=== PATIENT | female | born 1970 | race Caucasian/White ===

== ENCOUNTER 2017-08-16 05:42 | Day surgery (SDC) | payer OTHER ==
[2017-08-16] MEDS ORDERED: LIDOCAINE 1% 100 MG in NS 100 ML IV ONE (06:03)
[2017-08-16] MEDS ORDERED: METOCLOPRAMIDE 10 MG/2 ML VIAL IVP ONE (06:03)
[2017-08-16] MEDS ORDERED: KETOROLAC 15 MG/1 ML SDV IVP ONE (06:04)
--- NOTE | 2017-08-16 06:07 | EDPHY ---
H & P Stated Complaint: abdominal pain Source: Patient Exam Limitations: No limitations - Personal History LMP (Females 10-55): Now Current Tetanus/Diphtheria Vaccine: Yes Current Tetanus Diphtheria and Acellular Pertussis (TDAP): Yes - Medical/Surgical History Hx Asthma: No Hx Chronic Respiratory Disease: No Hx Diabetes: No Hx Cardiac Disease: No Hx Renal Disease: No Hx Cirrhosis: No Hx Alcoholism: No Hx HIV/AIDS: No Hx Splenectomy or Spleen Trauma: No Other PMH: tonsilectomy. gallbladder - Social History Smoking Status: Never smoked <Mag Uribe - Last Filed: 08/16/17 06:39> <Gianfranco Arias - Last Filed: 08/16/17 07:27> Time Seen by Provider: 08/16/17 05:54 HPI/ROS: HPI The patient presents with lower abdominal pain which is bilateral, cramping in nature, began at 2:00 a.m. when she rolled over in her sleep. She had a small bowel movement, took some gas ex medication with some improvement in her pain, however then a got worse. She is feeling nauseated but has not vomited. Her pain is worse with movement. She does have chronic low back pain for which she takes oxycodone at night. She does have PCOS and is followed with frequent ultrasounds. She is on the 2nd day of her menses.. REVIEW OF SYSTEMS Constitutional: No fever, no chills. Eyes: No discharge. ENT: No sore throat. Cardiovascular: No chest pain, no palpitations. Respiratory: No cough, no shortness of breath. Gastrointestinal: See HPI Genitourinary: No hematuria. Musculoskeletal: No back pain. Skin: No rashes. Neurological: No headache. PMHx: PCOS, history of cholecystectomy, lower back pain Soc Hx: Housed PHYSICAL General Appearance: Alert, uncomfortable appearing, hyperventilating Eyes: Pupils equal and round no pallor or injection ENT, Mouth: Mucous membranes moist Respiratory: There are no retractions, lungs are clear to auscultation Cardiovascular: Regular rate and rhythm Gastrointestinal: Abdomen is soft and and tender in the left and right lower quadrants without rebound or guarding Neurological: A&O, moves all extremities Skin: Warm and dry, no rashes Musculoskeletal: Neck is supple non tender Extremities: symmetrical, full range of motion Psychiatric: Patient is oriented X 3, there is no agitation (Mag Uribe) Constitutional: Initial Vital Signs Temperature (C) 36.8 C 08/16/17 05:46 Heart Rate 84 08/16/17 05:46 Respiratory Rate 18 08/16/17 05:46 Blood Pressure 114/76 08/16/17 05:46 O2 Sat (%) 100 08/16/17 05:46 O2 Delivery Mode Room Air Allergies/Adverse Reactions: No Known Allergies Allergy (Unverified 08/18/09 09:45) Home Medications: Medication Instructions Recorded NK [No Known Home Meds] 08/17/14 Medical Decision Making <Mag Uribe - Last Filed: 08/16/17 06:39> - Diagnostics Imaging: Discussed imaging studies w/ bilingual call center representative Radiologist, I viewed and interpreted images myself <Gianfranco Arias - Last Filed: 08/16/17 07:27> Differential Diagnosis: This is a 46-year-old female with history of PCOS, status post cholecystectomy who presents with bilateral lower quadrant abdominal pain which has been present for the last 4 hours which started when she was sleeping. The pain is worse with movement, crampy in nature. Differential diagnosis includes menstrual cramps, ovarian cyst with rupture, ovarian torsion, appendicitis, diverticulitis, ectopic . In the emergency department, the patient received IV fluids for volume depletion , she received pain medication with some improvement in her pain, labs were checked and did reveal a profound leukocytosis concerning for underlying infection verses stress response. CT scan of abdomen pelvis was ordered given leukocytosis raising concern for diverticulitis or appendicitis. At 6:45 a.m., the case has been signed out to the oncoming provider Dr. Arias pending review of the patient's CT scan and further disposition. (Mag Uribe) Other Provider: 0700: I assumed care of this patient at shift change pending CT results. 0715: CT shows acute appendicitis with possible abscesses. I examined the patient and she continues to have RLQ tenderness. She has received 2L IV NS and 1gm IV ertapenem. 07: Consulted with Dr. Soria, surgeon. She plans to take patient to surgery. She will look at the retrouterine structures with the scope, so we do not need an ultrasound. (Gianfranco Arias) - Data Points Laboratory Results: Laboratory Results 08/16/17 06:03 08/16/17 06:03 08/16/17 08/16/17 08/16/17 06:20 06:03 06:03 WBC RBC Hgb Hct MCV MCH MCHC RDW Plt Count MPV Neut % (Auto) Lymph % (Auto) [place] % (Auto) Eos % (Auto) Baso % (Auto) Nucleat RBC Rel Count Absolute Neuts (auto) Absolute Lymphs (auto) Absolute Monos (auto) Absolute Eos (auto) Absolute Basos (auto) Absolute Nucleated RBC Immature Gran % Immature Gran # Sodium 136 mEq/L mEq/L (134-144) Potassium 4.1 mEq/L mEq/L (3.5-5.2) Chloride 106 mEq/L mEq/L (97-110) Carbon Dioxide 18 mEq/l L mEq/l (22-31) Anion Gap 12 mEq/L mEq/L (8-16) BUN 20 mg/dL mg/dL (7-23) Creatinine 0.8 mg/dL mg/dL (0.6-1.0) Estimated GFR > 60 Glucose 152 mg/dL H mg/dL (70-100) Calcium 10.2 mg/dL mg/dL (8.5-10.4) Beta HCG, Qual NEGATIVE Urine Color YELLOW Urine Appearance CLEAR Urine pH 6.0 (5.0-7.5) Ur Specific [place] 1.019 (1.002-1.030) Urine Protein NEGATIVE (NEGATIVE) Urine Ketones NEGATIVE (NEGATIVE) Urine Blood 1+ H (NEGATIVE) Urine Nitrate NEGATIVE (NEGATIVE) Urine Bilirubin NEGATIVE (NEGATIVE) Urine Urobilinogen NEGATIVE EU EU (0.2-1.0) Ur Leukocyte Esterase NEGATIVE (NEGATIVE) Urine RBC 5-10 /hpf H /hpf (0-3) Urine WBC 5-10 /hpf H /hpf (0-3) Ur Epithelial Cells TRACE /lpf /lpf (NONE-1+) Urine Mucus 1+ /lpf /lpf (NONE-1+) Urine Glucose NEGATIVE (NEGATIVE) 08/16/17 06:03 WBC 20.63 10^3/uL H 10^3/uL (3.80-9.50) RBC 4.44 10^6/uL 10^6/uL (4.18-5.33) Hgb 14.0 g/dL g/dL (12.6-16.3) Hct 39.4 % % (38.0-47.0) MCV 88.7 fL fL (81.5-99.8) MCH 31.5 pg pg (27.9-34.1) MCHC 35.5 g/dL g/dL (32.4-36.7) RDW 13.2 % % (11.5-15.2) Plt Count 358 10^3/uL 10^3/uL (150-400) MPV 9.7 fL fL (8.7-11.7) Neut % (Auto) 83.9 % H % (39.3-74.2) Lymph % (Auto) 10.5 % L % (15.0-45.0) [place] % (Auto) 4.2 % L % (4.5-13.0) Eos % (Auto) 0.5 % L % (0.6-7.6) Baso % (Auto) 0.2 % L % (0.3-1.7) Nucleat RBC Rel Count 0.0 % % (0.0-0.2) Absolute Neuts (auto) 17.32 10^3/uL H 10^3/uL (1.70-6.50) Absolute Lymphs (auto) 2.16 10^3/uL 10^3/uL (1.00-3.00) Absolute Monos (auto) 0.86 10^3/uL H 10^3/uL (0.30-0.80) Absolute Eos (auto) 0.10 10^3/uL 10^3/uL (0.03-0.40) Absolute Basos (auto) 0.05 10^3/uL 10^3/uL (0.02-0.10) Absolute Nucleated RBC 0.00 10^3/uL 10^3/uL (0-0.01) Immature Gran % 0.7 % % (0.0-1.1) Immature Gran # 0.14 10^3/uL H 10^3/uL (0.00-0.10) Sodium Potassium Chloride Carbon Dioxide Anion Gap BUN Creatinine Estimated GFR Glucose Calcium Beta HCG, Qual Urine Color Urine Appearance Urine pH Ur Specific [place] Urine Protein Urine Ketones Urine Blood Urine Nitrate Urine Bilirubin Urine Urobilinogen Ur Leukocyte Esterase Urine RBC Urine WBC Ur Epithelial Cells Urine Mucus Urine Glucose Medications Given: Discontinued Medications Lidocaine HCl 100 mg/ Sodium (Chloride) 110 mls @ 600 mls/hr IV EDNOW ONE Stop: 08/16/17 06:13 Last Admin: 08/16/17 06:22 Dose: 110 mls Sodium Chloride (Ns) 1,000 mls @ 0 mls/hr IV ONCE ONE PRN Reason: Wide Open Stop: 08/16/17 06:11 Last Admin: 08/16/17 06:15 Dose: 1,000 mls Ketorolac Tromethamine (Toradol) 15 mg IVP EDNOW ONE Stop: 08/16/17 06:05 Last Admin: 08/16/17 06:15 Dose: 15 mg Metoclopramide HCl (Reglan Injection) 10 mg IVP EDNOW ONE Stop: 08/16/17 06:04 Last Admin: 08/16/17 06:14 Dose: 10 mg Departure <Mag Uribe - Last Filed: 08/16/17 06:39> <Gianfranco Arias - Last Filed: 08/16/17 07:27> - Departure Disposition: [facility] Acute Clinical Impression: Acute appendicitis Qualifiers: Acute appendicitis type: with localized peritonitis Qualified Code(s): K35.3 - Acute appendicitis with localized peritonitis Condition: Fair Instructions: Acute Abdominal Pain (ED) Referrals: SELENE ANTONIO [Primary Care Provider] - As per Instructions
[2017-08-16] MEDS ORDERED: NS 1,000 ML IV ONE (06:10)
[2017-08-16 06:11] LABS: % IMMATURE GRANULYOCYTES 0.7 % (0.0-1.1); ABSOLUTE IMMATURE GRANULOCYTES 0.14 10^3/uL (0.00-0.10); ADD DIFF? NO; ADD MORPH? NO; ADD SCAN? NO; ATYPICAL LYMPHOCYTE FLAG 0 (0-99); FRAGMENT RBC FLAG 0 (0-99); HEMATOCRIT 39.4 % (38.0-47.0); LEFT SHIFT FLG 0 (0-99); LIPEMIA HEMOLYSIS FLAG 90 (0-99); MEAN CELL HEMOGLOBIN 31.5 pg (27.9-34.1); MEAN CELL HEMOGLOBIN CONCENTR. 35.5 g/dL (32.4-36.7); MEAN CELL VOLUME 88.7 fL (81.5-99.8); MEAN PLATELET VOLUME 9.7 fL (8.7-11.7); PLATELET CLUMPS FLAG 0 (0-99); PLATELET COUNT 358 10^3/uL (150-400); RED BLOOD CELL COUNT 4.44 10^6/uL (4.18-5.33); RED CELL DISTRIBUTION WIDTH 13.2 % (11.5-15.2)
[2017-08-16 06:35] LABS: COLOR YELLOW; LEUKOCYTE ESTERASE,URINE NEGATIVE (NEGATIVE); NITRITE,URINE NEGATIVE (NEGATIVE)
[2017-08-16] MEDS ORDERED: IOPAMIDOL (ISOVUE-300) 100 ML BTL ONE (06:36)
[2017-08-16 06:38] LABS: ANION GAP 12 mEq/L (8-16); CALCIUM 10.2 mg/dL (8.5-10.4); CARBON DIOXIDE 18 mEq/l (22-31); CHLORIDE 106 mEq/L (97-110); CREATININE 0.8 mg/dL (0.6-1.0); GLOMERULAR FILTRATION RATE > 60; GLUCOSE 152 mg/dL (70-100); POTASSIUM 4.1 mEq/L (3.5-5.2); SODIUM 136 mEq/L (134-144)
[2017-08-16 06:41] LABS: MUCUS 1+ /lpf (NONE-1+)
[2017-08-16] MEDS ORDERED: ERTAPENEM 1 GM in NS 100 ML IV ONE (07:20)
[2017-08-16] MEDS ORDERED: BUPIVACAINE 0.5% 30 ML SDV ONE (07:46)
--- NOTE | 2017-08-16 07:53 | PDANEPAE ---
ANE History of Present Illness 46 year old female w/ PMHx of PCOS presents with abdominal pain. Imaging and evaluation in ED indicates acute appendicitis. To OR with Dr. Soria. ANE Past Medical History - Cardiovascular History Hx Hypertension: No Hx Arrhythmias: No Hx Chest Pain: No Hx Coronary Artery / Peripheral Vascular Disease: No Hx CHF / Valvular Disease: No Hx Palpitations: No - Pulmonary History Hx COPD: No Hx Asthma/Reactive Airway Disease: No Hx Recent Upper Respiratory Infection: No Hx Oxygen in Use at Home: No Hx Sleep Apnea: No - Endocrine History Hx Diabetes: No Hypothyroid: No Hyperthyroid: No Obesity: mild - Renal History Hx Renal Disorders: No - Liver History Hx Hepatic Disorders: No - Neurological & Psychiatric Hx Hx Neurological and Psychiatric Disorders: No - GI History GERD: mild Gastrointestinal History Comment: Acute appendicitis - Other Health History Other Health History: PCOS - Chronic Pain History Chronic Pain: Yes (Chronic back pain - scheduled for surgery in at [place]) - Surgical History Prior Surgeries: tonsillectomy. Cholecystectomy ANE Review of Systems Review of Systems: - Exercise capacity Exercise capacity: >=4 METS - Systems Gastrointestinal: Reports: abdominal pain, nausea Muscolosketal: Reports: back pain ANE Patient History - Allergies Allergies/Adverse Reactions: No Known Allergies Allergy (Verified 08/16/17 07:44) - Home Medications Home Medications: NK [No Known Home Meds] 08/17/14 [Last Taken Unknown] - NPO status NPO Status: no food or drink >8 hours NPO Since - Liquids (Date): 08/16/17 NPO Since - Liquids (Time): 02:00 NPO Since - Solids (Date): 08/15/17 NPO Since - Solids (Time): 20:00 - Anes Hx Anes Hx: no prior problems - Smoking Hx Smoking Status: Never smoked Marijuana use: No - Alcohol Use Alcohol Use: Rarely - Family Anes Hx Family Anes Hx: neg - N/A ANE Labs/Vital Signs - Labs Result Diagrams: 08/16/17 06:03 08/16/17 06:03 - Vital Signs Vital Signs: reviewed preoperatively; see RN documention for details Blood Pressure: 106/60 Heart Rate: 96 Respiratory Rate: 18 O2 Sat (%): 95 Height: 16.46 m Weight: 72.575 kg ANE Physical Exam - Airway Neck exam: FROM Mallampati Score: Class 2 Mouth exam: normal dental/mouth exam - Pulmonary Pulmonary: no respiratory distress - Cardiovascular Cardiovascular: regular rate and rhythym - ASA Status ASA Status: II ANE Anesthesia Plan Anesthesia Plan: general endotracheal anesthesia Total IV Anesthesia: No
[2017-08-16] MEDS ORDERED: MIDAZOLAM 2 MG/2 ML VIAL IVP ONE (08:10)
[2017-08-16] MEDS ORDERED: MIDAZOLAM 2 MG/2 ML VIAL ONE (08:11)
[2017-08-16 08:12] VITALS: PULSE 96
[2017-08-16] MEDS ORDERED: SUCCINYLCHOLINE CHLORIDE*ANESTHESIA ONLY*200 MG/10 ML SYR IVP ONE (08:14)
[2017-08-16] MEDS ORDERED: ROCURONIUM 50 MG/5 ML VIAL ONE (08:14)
[2017-08-16] MEDS ORDERED: ONDANSETRON 4 MG/2 ML VIAL ONE (08:14)
[2017-08-16] MEDS ORDERED: fentaNYL 100 MCG/2 ML INJ ONE (08:14)
[2017-08-16] MEDS ORDERED: DEXAMETHASONE 4 MG/ML VIAL ONE (08:14)
[2017-08-16] MEDS ORDERED: PROPOFOL 200 MG/20 ML VIAL ONE (08:14)
[2017-08-16] MEDS ORDERED: LIDOCAINE 2% 5 ML SDV ONE (08:14)
--- NOTE | 2017-08-16 08:36 | GHP ---
[f rep st] HISTORY AND PHYSICAL DATE OF ADMISSION: 08/16/2017 CHIEF COMPLAINT: Appendicitis. HISTORY OF PRESENT ILLNESS: The patient is a 46-year-old woman who woke up abruptly at 2 a.m. with l ower abdominal pain. She has never had this pain before. She felt like throwing up, but did not thr ow up. She does not think she had any fevers. The pain was so severe, she came to the emergency dep artment. Her white count is 20,000. Her CT scan showed acute appendicitis. In addition, she has 2 areas of fluid that are retro utero that could be related ovarian cyst versus abscess. PAST MEDICAL HISTORY: Back pain. PAST SURGICAL HISTORY: at age 18 and a laparoscopic cholecystectomy. FAMILY HISTORY: Significant for diabetes in her father, and her mother has had several back surgerie s. ALLERGIES: No known drug allergies. 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 She does not use [employer] products. She drinks alcohol very rarely. She has a daughter who returned from college. REVIEW OF SYSTEMS: 10-point review of systems negative other than HPI. PHYSICAL EXAM: VITALS: Reviewed. GENERAL: Pleasant, well-nourished, well-groomed woman, sitting u p on exam table. HEENT: Normocephalic. No gross hearing deficits. Mucous membranes moist. Pupils equal and round. No scleral icterus. LUNGS: Clear to auscultation bilaterally. No increased work of breathing. CARDIAC: Regular rate. No peripheral edema. ABDOMEN: Bowel sounds present. She i s diffusely tender, but no peritoneal signs. She has a positive Rovsing sign. Bowel sounds are pres ent. She is soft. MUSCULOSKELETAL: Normal nails. NEURO: Grossly intact. PSYCH: Mood and affect normal. LAB RESULTS: I personally reviewed the results of her CT scan and her white blood cell count. IMPRESSION AND PLAN: The patient is a 46-year-old with acute appendicitis. I will take her to the o perating room for a laparoscopic appendectomy. The risks and benefits, including, but not limited to , stroke, heart attack, , blood clots, infection, bleeding, damage to surrounding structures, an d possible need for other procedures, were discussed. She has [employer] on-call to the operating room. /[id number]/MODL
[2017-08-16] MEDS ORDERED: SUGAMMADEX SODIUM 200 MG/2 ML VIAL IVP ONE (08:59)
[2017-08-16] MEDS ORDERED: KETOROLAC 30 MG/1 ML SDV ONE (09:09)
--- NOTE | 2017-08-16 09:20 | POSTOPPROG ---
Post Op Note Date of Operation: 08/16/17 Surgeon: Teetee Soria Police Judge: juan Anesthesiologist: americo Anesthesia: GET(General Endotracheal) Pre-op Diagnosis: acute appendicitis Post-op Diagnosis: same, ruptrured ovarian cyst Indication: 46yo F with abdominal pain Procedure: lap appy Findings: trace blood in pelvis, inflammed appendix Inf/Abcess present in the surg proc area at time of surgery?: No Depth: Organ Space EBL: Minimal Specimen(s): appendix
[2017-08-16] MEDS ORDERED: OXYCODONE/APAP 5/325 TAB PO PRN (09:25)
[2017-08-16] MEDS ORDERED: fentaNYL 100 MCG/2 ML INJ IVP PRN (09:25)
[2017-08-16] MEDS ORDERED: LR 500 ML IV PRN (09:25)
[2017-08-16] MEDS ORDERED: ONDANSETRON 4 MG/2 ML VIAL IVP PRN (09:25)
[2017-08-16] MEDS ORDERED: NALOXONE HCL 0.4 MG/ML INJ IVP PRN (09:25)
[2017-08-16 10:13] VITALS: BP 117/72; RESP 19
[2017-08-16 10:53] VITALS: TEMP 98.2; O2SAT 98
--- NOTE | 2017-08-17 09:00 | POSTANESTH ---
Post Anesthetic Evaluation Cardiovascular Status: Normal, Stable, Similar to Pre-Op Cond Respiratory Status: Normal, Stable, Similar to Pre-op Cond. Level of Consciousness/Mental Status: Can Participate in Eval Pain Control: Adequate, Prn Tx Ordered Nausea/Vomiting Control: Adequate, Prn Tx Ordered Complications Possibly Related to Anesthesia: None Noted
--- NOTE | 2017-08-17 13:05 | GOP ---
[f rep st] OPERATIVE REPORT DATE OF OPERATION: 08/16/2017 SURGEON: Teetee Soria MD ENVIRONMENTAL ENGINEERING TECHNICIAN: LILI Solo. ANESTHESIOLOGIST: Herb Moser MD. PREOPERATIVE DIAGNOSIS: Acute appendicitis. POSTOPERATIVE DIAGNOSIS: Acute appendicitis and ruptured ovarian cyst. PROCEDURE PERFORMED: Laparoscopic appendectomy with evacuation of blood in pelvis. FINDINGS: Blood in pelvis, slightly inflamed appendix. SPECIMENS: Appendix. ESTIMATED BLOOD LOSS: 5 cc. INDICATIONS: The patient is a 46-year-old woman, who had abrupt onset of abdominal pain at [address] scan showed an enlarged appendix. DESCRIPTION OF PROCEDURE: The patient was brought into the operating room, placed supine on the table, and general anesthesia was administered. Her abdomen was prepped and draped in the usual sterile fashion. I infiltrated all sites with 0.5% Marcaine prior to making incisions. I elevated her umbilicus. I inserted the Veress needle, and it passed the hanging drop test. Her abdomen insufflated easily to a pressure of 15 mmHg. Under direct vision, I placed a 5 mm suprapubic trocar and a 10 mm trocar in the left lower quadrant. She had some dark blood in her pelvis. Her uterus was enlarged. I identified her appendix. I divided the mesoappendix with the Harmonic Scalpel. I transected the base with an Endo-BILL 45 white load. I placed the appendix in an EndoCatch bag and retrieved it via the 10 mm trocar. I explored her abdomen. I identified both ovaries. The right appeared larger and more cystic than the left. I evacuated the blood with the suction senior net programmer. No additional findings were noted. The abdomen was allowed to desufflate, and the ports were removed under direct vision. The fascia at the 10 mm trocar site was closed with 0 Vicryl, skin closed with 4-0 Monocryl, and Dermabond applied. She was awakened in the operating room, extubated, and transferred to PACU in stable condition. /[id number]/MODL MTDD
== END 2017-08-16 10:50 | disposition home or self-care (01) ==
LOC: FSGY 07:27 → UNDOADMOB 07:28 → FSGY 10:50
PROVIDERS: ATTEND Surgery
PROC: 0U904ZZ Drainage of Right Ovary, Percutaneous Endoscopic Approach (ICD-10-PCS; principal; 2017-08-16 08:00)
PROC: 0DTJ4ZZ Resection of Appendix, Percutaneous Endoscopic Approach (ICD-10-PCS; principal; 2017-08-16 08:00)
DX: K35.80 Unspecified acute appendicitis (principal); N83.201 Unspecified ovarian cyst, right side; M54.5 Low back pain
CPT/HCPCS: 96365; J0330; J1100; J1335; J1885; J2250; J2405; J2704; J2765; J3010; Q9967

== ENCOUNTER 2018-05-16 14:32 | Emergency (ER) | payer OTHER ==
--- NOTE | 2018-05-16 15:00 | CPEKG ---
Heart Rate: 90 RR Interval: 667 P-R Interval: 140 QRSD Interval: 74 QT Interval: 340 QTC Interval: 416 P [place]: 77 QRS [place]: 61 T Wave [place]: 48 EKG Severity - NORMAL ECG - EKG Impression: SINUS RHYTHM Electronically Signed By: Venkatesh Mcclure 16-May-2018 15:39:33
--- NOTE | 2018-05-16 15:13 | EDPHY ---
H & P Time Seen by Provider: 05/16/18 14:54 HPI/ROS: Chief complaint. Nausea vomiting, passed out HPI. Patient 47-year-old female with nausea vomiting that began last night. She subjectively had fever last night. Today she was at a Neurosurgery follow- up appointment and after the exam she was in the waiting room and she notes post noticed both arms tingly increased nausea and then she nearly passed out. She feels weak and achy. No abdominal pain. No diarrhea yet though feels that this may be coming. She has a daughter that had some similar type illness but no vomiting but did include sore throat in the last few days. Otherwise no recent travel or bad food. Denies chest pain or shortness of breath or abdominal pain. She has passed out previously. The patient is 6 weeks out from a lumbar fusion. She was seen today in the office for increased pain. She was given prescription for gabapentin to help with nerve pain but otherwise the office was happy with the patient's progress. She tells me that she has not been sleeping well recently because of continuing pain in the low back. ROS Constitutional. Subjective fever Eyes. no problems with vision ENT. no sore throat, no nasal drainage Cardiovascular. no chest pain Respiratory. no shortness of breath, no cough Abdominal. Nausea and vomiting . no problems urinating MS. no calf pain/swelling, no neck/back pain, no joint pain Skin. no rash Lymph. no swollen glands Neuro. Near syncope Past Medical/Surgical History: Past medical history significant for hysterectomy, tonsillectomy, cholecystectomy, appendectomy, lumbar fusion L4-L5 Social History: , nonsmoker, no alcohol Smoking Status: Never smoked Physical Exam: General Appearance: Alert well-developed female mild distress vital signs are stay Eyes: Pupils equal and round no pallor or injection. ENT, Mouth: Mucous membranes are moist. Respiratory: There are no retractions, lungs are clear to auscultation. Cardiovascular: Regular rate and rhythm. Gastrointestinal: Abdomen is soft and nontender, no masses, bowel sounds normal. Neurological: Awake and alert, sensory and motor exams grossly normal. Skin: Warm and dry, no rashes. Musculoskeletal: Neck is supple nontender. Extremities symmetrical, full range of motion. Psychiatric: Patient is oriented X 3, there is no agitation. Constitutional: Initial Vital Signs Temperature (C) 36.9 C 05/16/18 14:44 Heart Rate 95 05/16/18 14:44 Respiratory Rate 18 05/16/18 14:44 Blood Pressure 126/87 H 05/16/18 14:44 O2 Sat (%) 98 05/16/18 14:44 O2 Delivery Mode Room Air Allergies/Adverse Reactions: No Known Allergies Allergy (Verified 08/16/17 07:44) Home Medications: Medication Instructions Recorded Hydrocodone/APAP 5/325 [[place] 1 - 2 tab PO Q4H PRN #15 tab 08/16/17 5/325 (*)] Ibuprofen [Motrin (*)] 200 mg PO DAILY PRN 08/16/17 Nabumetone [Relafen 500 mg (*)] 500 mg PO BID 08/16/17 Ondansetron Odt [Zofran Odt] 4 mg PO Q4PRN PRN #4 tab 05/16/18 oxyCODONE HCL [Oxycodone HCl] 5 mg PO Q4-6PRN PRN #12 tablet 05/16/18 Medical Decision Making - Diagnostics EKG Interpretation: EKG interpreted by me shows normal sinus rhythm with normal interval and axis. QRS is normal there is no significant ST elevation or depression. No arrhythmia. The rate is 90 Procedures: IV normal saline. Target 2 L. Zofran IV. ED Course/Re-evaluation: Re-evaluation 4:35 p.m.--patient feeling better. She has been up to the bathroom to urinate. She is taking oral fluids. She feels ready to go home. She has no other complaints patient and I discussed EKG and laboratory evaluation, treatment plan including criteria for return importance of follow-up and further evaluation. She expresses understanding and agreement Differential Diagnosis: I think that this is likely nausea vomiting with some dehydration. No evidence for electrolyte abnormality. No evidence for acute coronary syndrome. Near syncope secondary to the nausea vomiting dehydration. I do not think there is an acute complication with her recent lumbar surgery - Data Points Laboratory Results: Laboratory Results 05/16/18 15:20 05/16/18 15:20 05/16/18 05/16/18 05/16/18 15:45 15:20 15:20 WBC 8.93 10^3/uL 10^3/uL (3.80-9.50) RBC 5.05 10^6/uL 10^6/uL (4.18-5.33) Hgb 15.3 g/dL g/dL (12.6-16.3) Hct 45.9 % % (38.0-47.0) MCV 90.9 fL fL (81.5-99.8) MCH 30.3 pg pg (27.9-34.1) MCHC 33.3 g/dL g/dL (32.4-36.7) RDW 14.3 % % (11.5-15.2) Plt Count 340 10^3/uL 10^3/uL (150-400) MPV 9.5 fL fL (8.7-11.7) Neut % (Auto) 81.9 % H % (39.3-74.2) Lymph % (Auto) 11.1 % L % (15.0-45.0) [place] % (Auto) 4.6 % % (4.5-13.0) Eos % (Auto) 1.8 % % (0.6-7.6) Baso % (Auto) 0.3 % % (0.3-1.7) Nucleat RBC Rel Count 0.0 % % (0.0-0.2) Absolute Neuts (auto) 7.31 10^3/uL H 10^3/uL (1.70-6.50) Absolute Lymphs (auto) 0.99 10^3/uL L 10^3/uL (1.00-3.00) Absolute Monos (auto) 0.41 10^3/uL 10^3/uL (0.30-0.80) Absolute Eos (auto) 0.16 10^3/uL 10^3/uL (0.03-0.40) Absolute Basos (auto) 0.03 10^3/uL 10^3/uL (0.02-0.10) Absolute Nucleated RBC 0.00 10^3/uL 10^3/uL (0-0.01) Immature Gran % 0.3 % % (0.0-1.1) Immature Gran # 0.03 10^3/uL 10^3/uL (0.00-0.10) Sodium 136 mEq/L mEq/L (135-145) Potassium 3.9 mEq/L mEq/L (3.3-5.0) Chloride 107 mEq/L mEq/L (97-110) Carbon Dioxide 21 mEq/l L mEq/l (22-31) Anion Gap 8 mEq/L mEq/L (8-16) BUN 11 mg/dL mg/dL (7-23) Creatinine 0.7 mg/dL mg/dL (0.6-1.0) Estimated GFR > 60 Glucose 100 mg/dL mg/dL (70-100) Calcium 9.6 mg/dL mg/dL (8.5-10.4) POC Troponin I 0.00 ng/mL ng/mL (0.00-0.08) Lipase 80 IU/L IU/L (23-300) Medications Given: Discontinued Medications Acetaminophen (Tylenol) 1,000 mg PO EDNOW ONE Stop: 05/16/18 15:56 Last Admin: 05/16/18 15:56 Dose: 1,000 mg Sodium Chloride (Ns) 1,000 mls @ 0 mls/hr IV EDNOW ONE; Wide Open PRN Reason: Protocol Stop: 05/16/18 15:33 Last Admin: 05/16/18 15:39 Dose: 1,000 mls Sodium Chloride (Ns) 1,000 mls @ 0 mls/hr IV EDNOW ONE; Wide Open PRN Reason: Protocol Stop: 05/16/18 15:33 Last Admin: 05/16/18 15:39 Dose: 1,000 mls Ondansetron HCl (Zofran) 4 mg IVP EDNOW ONE Stop: 05/16/18 15:33 Last Admin: 05/16/18 15:40 Dose: 4 mg Point of Care Test Results: Chemistry 05/16/18 15:45 POC Troponin I 0.00 ng/mL ng/mL (0.00-0.08) Departure - Departure Disposition: Home, Routine, Self-Care Clinical Impression: Near syncope Condition: Good Instructions: Near Syncope (ED) Additional Instructions: Frequent, small sips fluids. Gradual diet advancement. The Zofran if needed for nausea and vomiting Oxycodone for pain. Start the gabapentin as prescribed by Neurosurgery Return for worsening symptoms. Recheck in 1 day if not continuing to improve Referrals: NONE *PRIMARY CARE P,. [Primary Care Provider] - As per Instructions Abdullahi Solano MD [Medical Doctor] - 1 day, if not improved Prescriptions: Ondansetron Odt [Zofran Odt] 4 mg PO Q4PRN PRN #4 tab PRN Reason: Nausea/Vomiting, Use 1st oxyCODONE HCL [Oxycodone HCl] 5 mg PO Q4-6PRN PRN #12 tablet PRN Reason: Pain, Moderate
[2018-05-16] MEDS ORDERED: NS 1,000 ML IV ONE ×2 (15:32)
[2018-05-16] MEDS ORDERED: ONDANSETRON 4 MG/2 ML VIAL IVP ONE (15:32)
[2018-05-16] MEDS ORDERED: ACETAMINOPHEN 500 MG TAB ONE (15:53)
[2018-05-16] MEDS ORDERED: ACETAMINOPHEN 500 MG TAB PO ONE (15:55)
[2018-05-16 15:56] LABS: PLATELET COUNT 340 10^3/uL (150-400)
[2018-05-16 17:43] VITALS: BP 107/72
== END 2018-05-16 17:51 | disposition home or self-care (01) ==
DX: R55 Syncope and collapse (principal); E86.9 Volume depletion, unspecified
CPT/HCPCS: 84484-PO; 96374; J2405